=== PATIENT | male | born 1950 | race Caucasian/White ===

== ENCOUNTER 2018-02-12 06:32 | Inpatient (IN) | payer MEDICARE, OTHER ==
[2018-02-12] MEDS ORDERED: ALBUMIN HUMAN 5% 250 ML INJ (07:00)
[2018-02-12] MEDS ORDERED: SODIUM CL BACTERIOSTATIC 30 ML INJ (07:50)
[2018-02-12] MEDS ORDERED: MIDAZOLAM 1 MG/ML 2 ML INJ (08:21)
[2018-02-12] MEDS ORDERED: ONDANSETRON 4 MG INJ (08:21)
[2018-02-12] MEDS ORDERED: METOCLOPRAMIDE 10 MG INJ (08:21)
[2018-02-12] MEDS ORDERED: FENTAnyl 50 MCG/ML VIAL (08:21)
[2018-02-12] MEDS ORDERED: ROPIVACAINE 0.5 % 30 ML VIAL (08:23)
[2018-02-12] MEDS ORDERED: CEFAZOLIN 1 GM INJ (09:02)
[2018-02-12] MEDS ORDERED: PHENYLephrine (100 MCG/ML) 5ML SYG ×3 (09:15→12:18)
[2018-02-12] MEDS ORDERED: ROCURONIUM 50 MG INJ (09:18)
[2018-02-12] MEDS: CEFAZOLIN 1 GM INJ (09:38)
[2018-02-12] MEDS: HEPARIN 1000 UNITS/ML 10 ML INJ (09:39)
[2018-02-12] MEDS: GELATIN SIZE 100 SPONGE ×3 (09:40→11:12)
[2018-02-12] MEDS: THROMBIN 5000 UNIT VIAL ×3 (09:41→11:12)
[2018-02-12] MEDS ORDERED: EPHEDrine SULFATE 50 MG/5 ML SYG ×2 (11:03→13:43)
[2018-02-12] MEDS: ROPIVACAINE 0.5 % 30 ML VIAL (12:26)
[2018-02-12] MEDS ORDERED: DIPHENHYDRAMINE 50 MG INJ IV (12:30)
[2018-02-12] MEDS ORDERED: ONDANSETRON 4 MG INJ IV ×2 (12:30→13:30)
[2018-02-12] MEDS ORDERED: HYDROmorphONE 0.5 MG/0.5 ML SYG IV ×2 (12:30)
[2018-02-12] MEDS ORDERED: NEOSTIGMINE 3 MG/3 ML SYRINGE (13:28)
[2018-02-12] MEDS ORDERED: NALOXONE (0.4 MG/ML) INJ IV (13:30)
[2018-02-12] MEDS ORDERED: NACL 0.9% 3 ML SYG IV (13:30)
[2018-02-12] MEDS ORDERED: ALBUMIN HUMAN 5% 250 ML (13:42)
[2018-02-12] MEDS: ALBUMIN HUMAN 5% 250 ML IV (14:02)
[2018-02-12] MEDS: EPHEDrine SULFATE 50 MG/5 ML SYG IV (14:03)
[2018-02-12 14:04] LABS: HEMATOCRIT 29.3 % (42.0-52.0); HEMOGLOBIN 9.9 g/dl (14.0-18.0)
[2018-02-12] MEDS ORDERED: HYDROmorphONE (0.2 MG/ML) 10ML SYG IV (14:12)
[2018-02-12] MEDS: HYDROmorphONE (0.2 MG/ML) 10ML SYG IV ×4 (14:34→14:48)
[2018-02-12] MEDS: HYDROmorphONE 0.2 MG/ML PCA IV (14:42)
[2018-02-12] MEDS: CEFAZOLIN 1 GM/50 ML (PMX) 50 ML IVPB ×2 (14:54→19:56)
[2018-02-12] MEDS: NS + KCL 20 MEQ 1,000 ML IV (16:51)
[2018-02-12] MEDS: HYDROmorphONE 0.5 MG/0.5 ML SYG IV (18:22)
[2018-02-12] MEDS: QUETIAPINE 100 MG TAB PO (22:25)
[2018-02-12] MEDS: TAMSULOSIN (SR) 0.4 MG CAP PO (22:25)
[2018-02-12] MEDS: ALPRAZOLAM 0.25 MG TAB PO (23:50)
[2018-02-13] MEDS: CEFAZOLIN 1 GM/50 ML (PMX) 50 ML IVPB ×2 (01:22→08:46)
[2018-02-13] MEDS: HYDROmorphONE 0.2 MG/ML PCA IV ×3 (02:51→19:19)
[2018-02-13] MEDS: NS + KCL 20 MEQ 1,000 ML IV ×2 (03:45→14:04)
[2018-02-13] MEDS: ACETAMINOPHEN 325 MG TAB PO (03:50)
[2018-02-13 05:35] LABS: HEMATOCRIT 29.4 % (42.0-52.0); HEMOGLOBIN 10.1 g/dl (14.0-18.0)
[2018-02-13 06:13] LABS: ANION GAP 12 (8-16); BLOOD UREA NITROGEN 14 mg/dl (7-20); CALCIUM 7.7 mg/dl (8.4-10.2); CARBON DIOXIDE 26 mmol/L (21-31); CHLORIDE 106 mmol/L (97-110); CREATININE 0.72 mg/dl (0.61-1.24); GLUCOSE 127 mg/dl (70-220); POTASSIUM 3.6 mmol/L (3.5-5.1); SODIUM 140 mmol/L (135-144)
[2018-02-13] MEDS: ALPRAZOLAM 0.25 MG TAB PO (08:50)
[2018-02-13] MEDS: SERTRALINE 50 MG TAB PO (10:21)
[2018-02-13] MEDS: ALPRAZOLAM 0.5 MG TAB PO ×2 (14:00→21:42)
[2018-02-13] MEDS ORDERED: HYDROmorphONE 0.2 MG/ML PCA IV (15:30)
[2018-02-13] MEDS ORDERED: QUETIAPINE 100 MG TAB PO (21:00)
[2018-02-13] MEDS: QUETIAPINE 100 MG TAB PO (21:42)
[2018-02-13] MEDS: TAMSULOSIN (SR) 0.4 MG CAP PO (21:42)
[2018-02-14] MEDS: NS + KCL 20 MEQ 1,000 ML IV ×3 (00:13→17:19)
[2018-02-14] MEDS: HYDROmorphONE 0.2 MG/ML PCA IV ×2 (04:20→17:08)
[2018-02-14 05:21] LABS: ADD MAN DIFF? NO
[2018-02-14 05:25] LABS: BASOPHILS % 0.3 % (0.0-2.0); EOSINOPHILS # 0.1 10^3/ul (0.0-0.5); EOSINOPHILS % 0.5 % (0.0-7.0); HEMATOCRIT 25.7 % (42.0-52.0); HEMOGLOBIN 8.7 g/dl (14.0-18.0); LYMPHOCYTES % 8.9 % (15.0-51.0); MEAN CORPUSCULAR HEMOGLOBIN 30.6 pg (29.0-33.0); MEAN CORPUSCULAR HGB CONC 33.9 g/dl (32.0-37.0); MEAN CORPUSCULAR VOLUME 90.5 fl (82.0-101.0); MEAN PLATELET VOLUME 10.9 fl (7.4-10.4); MONOCYTE # 0.9 10^3/ul (0.3-0.9); MONOCYTES % 8.1 % (0.0-11.0); NEUTROPHIL # 9.2 10^3/ul (1.6-7.5); NEUTROPHILS % 81.5 % (39.0-77.0); PLATELET COUNT 163 10^3/UL (140-415); RED BLOOD COUNT 2.84 10^6/ul (4.70-6.10); RED CELL DISTRIBUTION WIDTH 12.1 % (11.5-14.5)
[2018-02-14 05:25] LABS: WHITE BLOOD COUNT 11.3 10^3/ul (4.8-10.8)
[2018-02-14 05:37] LABS: ANION GAP 8 (8-16); BLOOD UREA NITROGEN 9 mg/dl (7-20); CALCIUM 7.7 mg/dl (8.4-10.2); CARBON DIOXIDE 28 mmol/L (21-31); CHLORIDE 101 mmol/L (97-110); CREATININE 0.87 mg/dl (0.61-1.24); GLUCOSE 123 mg/dl (70-220); POTASSIUM 3.8 mmol/L (3.5-5.1); SODIUM 133 mmol/L (135-144)
[2018-02-14] MEDS: ALPRAZOLAM 0.5 MG TAB PO ×3 (05:54→22:00)
[2018-02-14] MEDS: SERTRALINE 50 MG TAB PO (08:37)
[2018-02-14] MEDS: ACETAMINOPHEN 325 MG TAB PO (16:48)
[2018-02-14] MEDS ORDERED: VANCOMYCIN IV PER PHARMACY XX (17:30)
[2018-02-14] MEDS: MEROPENEM 500MG/50 ML (PMX) 50 ML IVPB ×2 (18:28→23:16)
[2018-02-14] MEDS: VANCOMYCIN 1.75 GM in SOD CHLORIDE 0.9% 500 ML IVPB (18:30)
[2018-02-14] MEDS: TAMSULOSIN (SR) 0.4 MG CAP PO (22:07)
[2018-02-14] MEDS: DOCUSATE SODIUM 100 MG CAP PO (22:07)
[2018-02-14] MEDS: QUETIAPINE 100 MG TAB PO (22:08)
[2018-02-14] MEDS: AL HYDROX/MG HYDROX/SIMETH 30 ML CUP PO (22:08)
[2018-02-15] MEDS: NS + KCL 20 MEQ 1,000 ML IV ×5 (03:00→23:00)
[2018-02-15] MEDS: MEROPENEM 500MG/50 ML (PMX) 50 ML IVPB (05:27)
[2018-02-15] MEDS: ACETAMINOPHEN 325 MG TAB PO ×2 (05:42→14:34)
[2018-02-15] MEDS: ALPRAZOLAM 0.5 MG TAB PO ×3 (06:00→21:56)
[2018-02-15] MEDS: HYDROmorphONE 0.2 MG/ML PCA IV (06:47)
[2018-02-15] MEDS: VANCOMYCIN 1.25 GM in SOD CHLORIDE 0.9% 250 ML IVPB ×2 (06:47→17:24)
[2018-02-15 07:38] LABS: ADD MAN DIFF? NO
[2018-02-15 07:45] LABS: WHITE BLOOD COUNT 8.4 10^3/ul (4.8-10.8)
[2018-02-15 07:45] LABS: BASOPHILS % 0.2 % (0.0-2.0); EOSINOPHILS # 0.3 10^3/ul (0.0-0.5); HEMATOCRIT 20.7 % (42.0-52.0); HEMOGLOBIN 7.2 g/dl (14.0-18.0); LYMPHOCYTES % 11.3 % (15.0-51.0); MEAN CORPUSCULAR HEMOGLOBIN 31.9 pg (29.0-33.0); MEAN CORPUSCULAR HGB CONC 34.8 g/dl (32.0-37.0); MEAN CORPUSCULAR VOLUME 91.6 fl (82.0-101.0); MEAN PLATELET VOLUME 11.2 fl (7.4-10.4); MONOCYTE # 0.7 10^3/ul (0.3-0.9); MONOCYTES % 7.7 % (0.0-11.0); NEUTROPHIL # 6.5 10^3/ul (1.6-7.5); NEUTROPHILS % 77.2 % (39.0-77.0); PLATELET COUNT 151 10^3/UL (140-415); RED BLOOD COUNT 2.26 10^6/ul (4.70-6.10); RED CELL DISTRIBUTION WIDTH 12.2 % (11.5-14.5)
[2018-02-15 08:12] LABS: ANION GAP 7 (8-16); BLOOD UREA NITROGEN 8 mg/dl (7-20); CALCIUM 7.6 mg/dl (8.4-10.2); CARBON DIOXIDE 31 mmol/L (21-31); CHLORIDE 103 mmol/L (97-110); CREATININE 0.84 mg/dl (0.61-1.24); GLUCOSE 98 mg/dl (70-220); POTASSIUM 3.5 mmol/L (3.5-5.1); SODIUM 137 mmol/L (135-144)
[2018-02-15] MEDS: DOCUSATE SODIUM 100 MG CAP PO ×2 (09:29→20:25)
[2018-02-15] MEDS: SERTRALINE 50 MG TAB PO (09:30)
[2018-02-15] MEDS: MEROPENEM 1 GM/50ML(PMX) 50 ML IVPB ×2 (14:34→21:57)
[2018-02-15 14:58] LABS: LACTIC ACID 0.9 mmol/L (0.5-2.0)
[2018-02-15 15:14] LABS: IMMEDIATE SPIN CROSSMATCH 1 1
[2018-02-15] MEDS: HYDROmorphONE 0.5 MG/0.5 ML SYG IV ×2 (15:55→20:26)
[2018-02-15 17:36] LABS: ADD UMIC YES; UR ASCORBIC ACID NEGATIVE (NEGATIVE); UR BILIRUBIN (Dip) NEGATIVE (NEGATIVE); UR BLOOD (Dip) 2+ mg/dL (NEGATIVE); UR CLARITY CLEAR (CLEAR); UR COLOR COLORLESS (YELLOW); UR GLUCOSE (Dip) NEGATIVE (NEGATIVE); UR KETONES (Dip) NEGATIVE (NEGATIVE); UR LEUKOCYTE ESTERASE (Dip) NEGATIVE Leu/ul (NEGATIVE); UR NITRITE (Dip) NEGATIVE (NEGATIVE); UR RBC 1 /HPF (0-5); UR SPECIFIC GRAVITY (Dip) 1.002 (1.003-1.030); UR TOTAL PROTEIN (Dip) NEGATIVE (NEGATIVE); UR UROBILINOGEN (Dip) NEGATIVE (NEGATIVE); UR WBC 0 /HPF (0-5)
[2018-02-15] MEDS: QUETIAPINE 100 MG TAB PO (20:25)
[2018-02-15] MEDS: TAMSULOSIN (SR) 0.4 MG CAP PO (20:25)
[2018-02-16] MEDS ORDERED: NITROGLYCERIN (SL) 0.4 MG TAB SL
[2018-02-16] MEDS: MEROPENEM 1 GM/50ML(PMX) 50 ML IVPB ×3 (05:19→22:39)
[2018-02-16] MEDS: ALPRAZOLAM 0.5 MG TAB PO ×3 (05:19→22:00)
[2018-02-16 05:53] LABS: ADD MAN DIFF? NO
[2018-02-16 06:03] LABS: WHITE BLOOD COUNT 7.6 10^3/ul (4.8-10.8)
[2018-02-16 06:03] LABS: BASOPHILS % 0.4 % (0.0-2.0); EOSINOPHILS # 0.3 10^3/ul (0.0-0.5); EOSINOPHILS % 4.1 % (0.0-7.0); HEMATOCRIT 23.7 % (42.0-52.0); HEMOGLOBIN 8.3 g/dl (14.0-18.0); LYMPHOCYTES # 0.8 10^3/ul (0.8-2.9); LYMPHOCYTES % 10.6 % (15.0-51.0); MEAN CORPUSCULAR HEMOGLOBIN 31.4 pg (29.0-33.0); MEAN CORPUSCULAR VOLUME 89.8 fl (82.0-101.0); MEAN PLATELET VOLUME 10.4 fl (7.4-10.4); MONOCYTE # 0.7 10^3/ul (0.3-0.9); MONOCYTES % 9.7 % (0.0-11.0); NEUTROPHIL # 5.7 10^3/ul (1.6-7.5); NEUTROPHILS % 74.5 % (39.0-77.0); PLATELET COUNT 215 10^3/UL (140-415); RED BLOOD COUNT 2.64 10^6/ul (4.70-6.10); RED CELL DISTRIBUTION WIDTH 12.9 % (11.5-14.5)
[2018-02-16 06:28] LABS: ANION GAP 11 (8-16); BLOOD UREA NITROGEN 6 mg/dl (7-20); CALCIUM 7.7 mg/dl (8.4-10.2); CARBON DIOXIDE 31 mmol/L (21-31); CHLORIDE 100 mmol/L (97-110); CREATININE 0.79 mg/dl (0.61-1.24); GLUCOSE 111 mg/dl (70-220); POTASSIUM 3.2 mmol/L (3.5-5.1); SODIUM 139 mmol/L (135-144)
[2018-02-16 06:32] LABS: TROPONIN-I 0.019 ng/ml (0.000-0.120)
[2018-02-16 07:15] LABS: VANCOMYCIN,TROUGH 8.4 ug/ml (10.0-20.0)
[2018-02-16] MEDS: DOCUSATE SODIUM 100 MG CAP PO ×2 (09:39→20:58)
[2018-02-16] MEDS: VANCOMYCIN 1.5 GM in SOD CHLORIDE 0.9% 250 ML IVPB ×2 (09:39→19:56)
[2018-02-16] MEDS: NS + KCL 20 MEQ 1,000 ML IV ×2 (09:39→18:49)
[2018-02-16] MEDS: ASPIRIN (EC) 325 MG TAB PO (09:39)
[2018-02-16] MEDS: SERTRALINE 50 MG TAB PO (09:40)
[2018-02-16] MEDS: POTASSIUM CHLORIDE 20 MEQ POWDER FOR ORAL SOLN PO ×2 (14:33→18:07)
[2018-02-16] MEDS: HYDROCODONE/APAP (5/325) TAB PO (18:07)
[2018-02-16] MEDS: TAMSULOSIN (SR) 0.4 MG CAP PO (20:57)
[2018-02-16] MEDS: QUETIAPINE 100 MG TAB PO (20:58)
[2018-02-17] MEDS: HYDROCODONE/APAP (5/325) TAB PO ×4 (04:11→20:56)
[2018-02-17] MEDS: MEROPENEM 1 GM/50ML(PMX) 50 ML IVPB ×2 (05:36→14:22)
[2018-02-17] MEDS: NS + KCL 20 MEQ 1,000 ML IV (05:36)
[2018-02-17] MEDS: ALPRAZOLAM 0.5 MG TAB PO (06:00)
[2018-02-17] MEDS: SERTRALINE 50 MG TAB PO (09:02)
[2018-02-17] MEDS: DOCUSATE SODIUM 100 MG CAP PO ×2 (09:02→20:57)
[2018-02-17] MEDS: ASPIRIN (EC) 325 MG TAB PO (09:02)
[2018-02-17 09:39] LABS: ADD MAN DIFF? NO
[2018-02-17 09:41] LABS: BASOPHILS % 0.4 % (0.0-2.0); EOSINOPHILS # 0.6 10^3/ul (0.0-0.5); EOSINOPHILS % 8.3 % (0.0-7.0); HEMATOCRIT 24.1 % (42.0-52.0); HEMOGLOBIN 8.2 g/dl (14.0-18.0); LYMPHOCYTES # 1.4 10^3/ul (0.8-2.9); LYMPHOCYTES % 19.5 % (15.0-51.0); MEAN CORPUSCULAR HEMOGLOBIN 30.5 pg (29.0-33.0); MEAN CORPUSCULAR VOLUME 89.6 fl (82.0-101.0); MONOCYTE # 0.7 10^3/ul (0.3-0.9); MONOCYTES % 9.3 % (0.0-11.0); NEUTROPHIL # 4.5 10^3/ul (1.6-7.5); NEUTROPHILS % 61.1 % (39.0-77.0); NUCLEATED RED BLOOD CELLS% 0.3 /100WBC (0.0-0.0); PLATELET COUNT 274 10^3/UL (140-415); RED BLOOD COUNT 2.69 10^6/ul (4.70-6.10); RED CELL DISTRIBUTION WIDTH 13.1 % (11.5-14.5)
[2018-02-17 09:41] LABS: WHITE BLOOD COUNT 7.4 10^3/ul (4.8-10.8)
[2018-02-17 10:09] LABS: ANION GAP 9 (8-16); BLOOD UREA NITROGEN 9 mg/dl (7-20); CALCIUM 8.2 mg/dl (8.4-10.2); CARBON DIOXIDE 31 mmol/L (21-31); CHLORIDE 104 mmol/L (97-110); GLUCOSE 106 mg/dl (70-220); POTASSIUM 3.3 mmol/L (3.5-5.1); SODIUM 141 mmol/L (135-144)
[2018-02-17] MEDS ORDERED: ALPRAZOLAM 0.5 MG TAB PO (11:30)
[2018-02-17] MEDS: POTASSIUM CHLORIDE 20 MEQ POWDER FOR ORAL SOLN PO (12:40)
[2018-02-17] MEDS: QUETIAPINE 100 MG TAB PO (20:56)
[2018-02-17] MEDS: ALFUZOSIN (SR) 10 MG TAB PO ×2 (20:56→21:07)
[2018-02-17] MEDS: TAMSULOSIN (SR) 0.4 MG CAP PO (20:56)
[2018-02-18] MEDS: HYDROCODONE/APAP (5/325) TAB PO ×4 (04:21→21:10)
[2018-02-18 06:59] LABS: ANION GAP 14 (8-16); BLOOD UREA NITROGEN 13 mg/dl (7-20); CALCIUM 8.2 mg/dl (8.4-10.2); CARBON DIOXIDE 29 mmol/L (21-31); CHLORIDE 101 mmol/L (97-110); CREATININE 0.74 mg/dl (0.61-1.24); GLUCOSE 117 mg/dl (70-220); POTASSIUM 3.5 mmol/L (3.5-5.1); SODIUM 140 mmol/L (135-144)
[2018-02-18] MEDS: LOSARTAN 50 MG TAB PO (09:08)
[2018-02-18] MEDS: DOCUSATE SODIUM 100 MG CAP PO ×2 (09:09→21:09)
[2018-02-18] MEDS: ASPIRIN (EC) 325 MG TAB PO (09:09)
[2018-02-18] MEDS: NEBIVOLOL 5 MG TAB PO (09:09)
[2018-02-18] MEDS: SERTRALINE 50 MG TAB PO (09:09)
[2018-02-18] MEDS: AMLODIPINE 5 MG TAB PO (09:10)
[2018-02-18 12:12] LABS: PROCALCITONIN 1.17 ng/mL (<0.10)
[2018-02-18] MEDS ORDERED: ALFUZOSIN (SR) 10 MG TAB PO (21:00)
[2018-02-18] MEDS: ALFUZOSIN (SR) 10 MG TAB PO (21:09)
[2018-02-18] MEDS: QUETIAPINE 100 MG TAB PO (21:09)
[2018-02-18] MEDS: TAMSULOSIN (SR) 0.4 MG CAP PO (21:09)
[2018-02-19] MEDS: SERTRALINE 50 MG TAB PO (08:53)
[2018-02-19] MEDS: DOCUSATE SODIUM 100 MG CAP PO (08:53)
[2018-02-19] MEDS: ASPIRIN (EC) 325 MG TAB PO (08:53)
[2018-02-19] MEDS: LOSARTAN 50 MG TAB PO (08:53)
[2018-02-19] MEDS: AMLODIPINE 5 MG TAB PO (08:54)
[2018-02-19] MEDS: NEBIVOLOL 5 MG TAB PO (08:54)
[2018-02-19 09:38] LABS: ADD MAN DIFF? NO
[2018-02-19 09:49] LABS: BASOPHILS % 0.4 % (0.0-2.0); EOSINOPHILS # 0.6 10^3/ul (0.0-0.5); EOSINOPHILS % 5.9 % (0.0-7.0); HEMATOCRIT 27.6 % (42.0-52.0); HEMOGLOBIN 9.2 g/dl (14.0-18.0); LYMPHOCYTES # 1.6 10^3/ul (0.8-2.9); LYMPHOCYTES % 16.7 % (15.0-51.0); MEAN CORPUSCULAR HEMOGLOBIN 30.5 pg (29.0-33.0); MEAN CORPUSCULAR HGB CONC 33.3 g/dl (32.0-37.0); MEAN CORPUSCULAR VOLUME 91.4 fl (82.0-101.0); MEAN PLATELET VOLUME 9.6 fl (7.4-10.4); MONOCYTE # 0.7 10^3/ul (0.3-0.9); MONOCYTES % 7.8 % (0.0-11.0); NEUTROPHIL # 6.2 10^3/ul (1.6-7.5); NEUTROPHILS % 66.9 % (39.0-77.0); NUCLEATED RED BLOOD CELLS% 0.2 /100WBC (0.0-0.0); PLATELET COUNT 393 10^3/UL (140-415); RED BLOOD COUNT 3.02 10^6/ul (4.70-6.10); RED CELL DISTRIBUTION WIDTH 13.3 % (11.5-14.5)
[2018-02-19 09:49] LABS: WHITE BLOOD COUNT 9.3 10^3/ul (4.8-10.8)
[2018-02-19] MEDS: HYDROCODONE/APAP (5/325) TAB PO (09:52)
[2018-02-19 10:12] LABS: ANION GAP 12 (8-16); BLOOD UREA NITROGEN 18 mg/dl (7-20); CALCIUM 8.7 mg/dl (8.4-10.2); CARBON DIOXIDE 31 mmol/L (21-31); CHLORIDE 100 mmol/L (97-110); CREATININE 0.86 mg/dl (0.61-1.24); GLUCOSE 126 mg/dl (70-220); POTASSIUM 3.3 mmol/L (3.5-5.1); SODIUM 140 mmol/L (135-144)
[2018-02-19] MEDS: POTASSIUM CHLORIDE 20 MEQ POWDER FOR ORAL SOLN PO (17:20)
== END 2018-02-19 18:10 | disposition home or self-care (01) | DRG 460 ==
LOC: REC 06:32 → TEL 02-14 05:20 → ICU 15:52
PROC: 0SG10A0 Fusion of 2 or more Lumbar Vertebral Joints with Interbody Fusion Device, Anterior Approach, Anterior Column, Open Approach (ICD-10-PCS; principal; 2018-02-12 08:00)
PROC: 0SG30A0 Fusion of Lumbosacral Joint with Interbody Fusion Device, Anterior Approach, Anterior Column, Open Approach (ICD-10-PCS; 2018-02-12 08:00)
PROC: 0SB20ZZ Excision of Lumbar Vertebral Disc, Open Approach (ICD-10-PCS; 2018-02-12 08:00)
PROC: 0SB40ZZ Excision of Lumbosacral Disc, Open Approach (ICD-10-PCS; 2018-02-12 08:00)
PROC: 0SH00BZ Insertion of Interspinous Process Spinal Stabilization Device into Lumbar Vertebral Joint, Open Approach (ICD-10-PCS; 2018-02-12 08:00)
PROC: 0SH30BZ Insertion of Interspinous Process Spinal Stabilization Device into Lumbosacral Joint, Open Approach (ICD-10-PCS; 2018-02-12 08:00)
PROC: 06QD0ZZ Repair Left Common Iliac Vein, Open Approach (ICD-10-PCS; 2018-02-12 08:24)
PROC: 30233N1 Transfusion of Nonautologous Red Blood Cells into Peripheral Vein, Percutaneous Approach (ICD-10-PCS; 2018-02-12 08:24)
DX: M51.17 Intervertebral disc disorders with radiculopathy, lumbosacral region (principal); D62 Acute posthemorrhagic anemia; R65.10 Systemic inflammatory response syndrome (SIRS) of non-infectious origin without acute organ dysfunction; M47.26 Other spondylosis with radiculopathy, lumbar region; I10 Essential (primary) hypertension; I95.9 Hypotension, unspecified; E78.5 Hyperlipidemia, unspecified; N40.0 Benign prostatic hyperplasia without lower urinary tract symptoms; F32.9 Major depressive disorder, single episode, unspecified; F41.9 Anxiety disorder, unspecified
CPT/HCPCS: 36430; 71045; 72114; 72131; 80048; 80202; 81001; 83605; 84145; 84484; 85014; 85018; 85025; 86850; 86900; 86901; 86920; 87040; 87081; 87086; 88304; 93005; 93306; 97110; 97116; 97162; 97530